=== PATIENT | female | born 1940 | race Caucasian/White ===

== ENCOUNTER 2018-07-01 15:57 | Outpatient (CLI) | payer MEDICARE ==
--- NOTE | 2018-07-01 16:32 | XRAY Report ---
Reason: LEFT HAND DIGIT 2 SWELLING Procedure Date: 07/01/2018 Accession Number: [id number] / [id number] Procedure: XR - Hand 3 View LT CPT Code: FULL RESULT: EXAM: LEFT HAND RADIOGRAPHY EXAM DATE: 07/01/2018 04:11 PM. CLINICAL HISTORY: LEFT HAND DIGIT 2 SWELLING. COMPARISON: None. TECHNIQUE: 3 views. FINDINGS: Bones: Normal. No fractures or bone lesions. Joints: There is spurring of the interphalangeal joints and first carpal metacarpal joint consistent with osteoarthritis. There are 2 calcifications at the second DIP joint. Soft Tissues: Normal. No soft tissue swelling. IMPRESSION: 1. Findings of osteoarthritis with 2 small calcifications at the second DIP joint. Favor degenerative calcifications, not excluding a small avulsion fracture. RADIA
== END 2018-07-01 15:58 | disposition home or self-care (01) ==
LOC: DI 15:57
PROVIDERS: ATTEND Nurse Practitioner Family
DX: R22.9 Localized swelling, mass and lump, unspecified (principal); M18.12 Unilateral primary osteoarthritis of first carpometacarpal joint, left hand

== ENCOUNTER 2021-01-16 14:58 | Outpatient (CLI) | payer MEDICARE ==
[2021-01-16 20:10] LABS: BASOPHILS # (AUTO) 0.1 10^3/uL (0.0-0.1); BASOPHILS % (AUTO) 0.6 %; EOSINOPHILS # (AUTO) 0.1 10^3/uL (0.0-0.7); EOSINOPHILS % (AUTO) 1.2 %; HCT - HEMATOCRIT 35.8 % (37.0-47.0); HGB - HEMOGLOBIN 11.7 g/dL (12.0-16.0); LYMPHOCYTES # (AUTO) 1.4 10^3/uL (1.5-3.5); MEAN CORPUSCULAR HEMOGLOBIN 31.2 pg (27.0-31.0); MEAN CORPUSCULAR HGB CONC 32.7 g/dL (32.0-36.0); MEAN CORPUSCULAR VOLUME 95.5 fL (81.0-99.0); MEAN PLATELET VOLUME 10.3 fL (7.9-10.8); MONOCYTES # (AUTO) 0.5 10^3/uL (0.0-1.0); MONOCYTES % (AUTO) 5.3 %; NEUTROPHILS # (AUTO) 7.7 10^3/uL (1.5-6.6); NEUTROPHILS % (AUTO) 78.5 %; PLT - PLATELET COUNT 243 10^3/uL (130-450); RED BLOOD COUNT 3.75 10^6/uL (4.20-5.40); RED CELL DISTRIBUTION WIDTH 13.6 % (12.0-15.0); WHITE BLOOD COUNT 9.8 x10^3/uL (4.8-10.8)
[2021-01-16 20:16] LABS: INR 1.1 (0.8-1.2); PT - PROTHROMBIN TIME 11.7 secs (9.9-12.6)
[2021-01-16 20:20] LABS: ALBUMIN 4.2 g/dL (3.2-5.5); BILIRUBIN,TOTAL 0.8 mg/dL (0.2-1.0); CALCIUM 9.3 mg/dL (8.5-10.3); CREATININE 0.7 mg/dL (0.4-1.0); POTASSIUM 4.2 mmol/L (3.5-5.0); TOTAL PROTEIN 6.3 g/dL (6.7-8.2)
[2021-01-16 20:24] LABS: PARTIAL THROMBOPLASTIN TIME 26.1 secs (24.9-33.3)
== END 2021-01-16 14:59 | disposition home or self-care (01) ==
LOC: LAB.S 14:58
PROVIDERS: ATTEND Physician Assistant
DX: M35.3 Polymyalgia rheumatica (principal); D69.2 Other nonthrombocytopenic purpura
CPT/HCPCS: 36415; 80053; 85025; 85610; 85651; 85730; 86140

== ENCOUNTER 2021-06-16 11:20 | Outpatient (CLI) | payer MEDICARE ==
--- NOTE | 2021-06-16 16:38 | Ultrasound Report ---
PROCEDURE: Pelvic w/Transvaginal INDICATIONS: POSTMENOPAUSAL BLEEDING TECHNIQUE: Real-time scanning was performed of the pelvic organs, with image documentation. Additional endovagi nal scanning was necessary due to incomplete visualization of the adnexal and endometrial structures by transabdominal scanning. COMPARISON: None. FINDINGS: No pathologic free abdominal or pelvic fluid. Uterus: Uterus is normal in size at 7.4 x 2.4 x 4.3 cm. The endometrium measures 5 mm in combined t hickness. Minimal heterogenous endometrium noted. Nabothian cyst, 7 mm noted on the cervix. Calcifie d uterine fibroid noted measuring 1.6 cm Ovaries: Right left ovaries measure 2.6 x 2.2 x 3.1 cm and 2.1 x 2.1 x 1.2 cm respectively. Bilatera l ovarian simple appearing cysts measuring 2.2 cm on the right and 1.4 cm on the left. IMPRESSION: Unremarkable endometrial thickness, 5 mm Incidental calcified fibroid measures 1.6 cm. Small bilateral ovarian cysts measuring up to 2.2 cm Reviewed by: Emiliano Solorio MD on 06/16/2021 3:36 PM AKDT Approved by: Emiliano Solorio MD on 06/16/2021 3:36 PM AKDT Station ID: [id number]
== END 2021-06-16 11:21 | disposition home or self-care (01) ==
LOC: DI 11:20
PROVIDERS: ATTEND Physician Assistant
DX: D25.9 Leiomyoma of uterus, unspecified (principal); N83.202 Unspecified ovarian cyst, left side; N83.201 Unspecified ovarian cyst, right side

== ENCOUNTER 2022-02-18 18:54 | Outpatient (CLI) | payer MEDICARE | END 2022-02-18 18:55 | disposition EMS.NT | LOC: EMS 18:54 | DX: I10 Essential (primary) hypertension (principal); F41.9 Anxiety disorder, unspecified ==

== ENCOUNTER 2024-03-26 13:44 | Outpatient (CLI) | payer MEDICARE ==
--- NOTE | 2024-03-26 17:21 | DEXA Report ---
PROCEDURE: Dexa Spine and/or Hip INDICATIONS: POST MENOPAUSAL TECHNIQUE: Dual energy x-ray absorptiometry (DXA) was performed on a [employer]. Regions measur ed are the AP Spine, femoral neck, and if needed forearm. COMPARISON: None FINDINGS: Lumbar Spine: Bone Mineral Density: 1.72 g/cm/cm,T score: 4.5. Left Femoral Neck: Bone Mineral Density: 0.94 g/cm/cm, T score: -0.7. Left Hip: Bone Mineral Density: 0.95 g/cm/cm,T score: -0.4. (T score greater or equal to -1.0: NORMAL) (T score from -1.1 to -2.4: OSTEOPENIA) (T score less than or equal to -2.5 to: OSTEOPOROSIS) Impression: By WHO criteria, this patient has normal bone density. Patients with diagnosis of osteoporosis or osteopenia should have regular bone mineral density assess ment. For those eligible for Medicare, routine testing is allowed once every 2 years. Testing frequ ency can be increased for patients who have rapidly progressing disease or for those who are receivin g medical therapy to restore bone mass. Reviewed by: Anselmo Villa MD on 03/26/2024 5:20 PM PDT Approved by: Anselmo Villa MD on 03/26/2024 5:20 PM PDT Station ID: [id number]
== END 2024-03-26 13:45 | disposition home or self-care (01) ==
LOC: DI 13:44
PROVIDERS: ATTEND Registered Nurse
DX: Z78.0 Asymptomatic menopausal state (principal)

== ENCOUNTER 2024-07-28 14:50 | Outpatient (CLI) | payer MEDICARE ==
--- NOTE | 2024-07-29 13:28 | XRAY Report ---
PROCEDURE: Hand 3+V LT INDICATIONS: PAIN IN LEFT FINGER TECHNIQUE: 3 views of the hand(s) acquired. COMPARISON: Left hand x-ray 07/01/2018 FINDINGS: Diffuse osseous demineralization. Interval progression of severe 1st CMC osteoarthritis with heteroto pic ossification. Mild 1st MTP and scattered DIP joint osteoarthritis. Mild triscaphe osteoarthritis. No fracture or dislocation. 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 Reviewed by: Huan Tobias MD on 07/29/2024 1:27 PM PDT Approved by: Huan Tobias MD on 07/29/2024 1:27 PM PDT Station ID: [id number]
== END 2024-07-28 14:51 | disposition home or self-care (01) ==
LOC: DI 14:50
PROVIDERS: ATTEND Registered Nurse
DX: M18.12 Unilateral primary osteoarthritis of first carpometacarpal joint, left hand (principal); M19.042 Primary osteoarthritis, left hand